=== PATIENT | male | born 1990 | race Caucasian/White ===

== ENCOUNTER 2022-03-15 15:44 | Emergency (ER) | payer SELFPAY | END 2022-03-15 16:50 | disposition home or self-care (01) | LOC: BURERS 15:44 | DX: L30.9 Dermatitis, unspecified (principal); F17.290 Nicotine dependence, other tobacco product, uncomplicated | CPT/HCPCS: 36416; 99282 ==

== ENCOUNTER 2023-11-17 19:28 | Emergency (ER) | payer BC, SELFPAY ==
[2023-11-17] MEDS ORDERED: Cephalexin 250 MG CAP ONE (20:18)
[2023-11-17] MEDS ORDERED: predniSONE 20 MG TAB ONE (20:18)
[2023-11-17] MEDS ORDERED: Sulfameth/Trimethoprim DS 800-160mg TAB ONE (20:18)
== END 2023-11-17 20:50 | disposition home or self-care (01) ==
LOC: BURERS 19:28
DX: L30.9 Dermatitis, unspecified (principal); F17.290 Nicotine dependence, other tobacco product, uncomplicated
CPT/HCPCS: 99283; J7512